=== PATIENT | female | born 1985 | race Caucasian/White ===

== ENCOUNTER 2018-10-03 12:40 | Outpatient (CLI) | payer OTHER | END 2018-10-03 23:59 | disposition home or self-care (01) | LOC: RAD 12:40 | PROVIDERS: ATTEND Family Medicine Sports Medicine | DX: S73.192A Other sprain of left hip, initial encounter (principal); M76.31 Iliotibial band syndrome, right leg; I10 Essential (primary) hypertension; Z72.89 Other problems related to lifestyle; X58.XXXA Exposure to other specified factors, initial encounter; Y93.89 Activity, other specified; Y92.89 Other specified places as the place of occurrence of the external cause; Y99.8 Other external cause status | CPT/HCPCS: 73721; 73722; 77002; J1040 ==

== ENCOUNTER → 2019-01-01 | Outpatient (CLI) | payer OTHER ==
[~2019-01-01] MED LIST: LISI-170 PO
[2019-01-01 11:03] LABS: ALBUMIN 4.7 g/dL (3.4-5.0); ANION GAP 5 mmol/L (5-15); CALCIUM 9.6 mg/dL (8.5-10.1); CHLORIDE 103 mmol/L (98-107)
[2019-01-01 11:06] LABS: ALANINE AMINOTRANSFERASE 26 U/L (12-78); ALKALINE PHOSPHATASE 60 U/L (45-117); BILIRUBIN,TOTAL 0.8 mg/dL (0.2-1.0); CREATININE 0.95 mg/dL (0.55-1.02); TOTAL PROTEIN 8.2 g/dL (6.4-8.2)
== END | disposition home or self-care (01) ==
LOC: STAR 09:38
PROVIDERS: ATTEND Orthopaedic Surgery
DX: Z01.818 Encounter for other preprocedural examination (principal); M24.151 Other articular cartilage disorders, right hip; M25.561 Pain in right knee; I10 Essential (primary) hypertension; M25.551 Pain in right hip; M25.859 Other specified joint disorders, unspecified hip; M75.21 Bicipital tendinitis, right shoulder
CPT/HCPCS: 36415; 80053; 93005

== ENCOUNTER 2019-01-07 05:09 | Day surgery (SDC) | payer OTHER ==
[~2019-01-07] VITALS: Ht 157.5 cm; Wt 53.6 kg
[2019-01-07] MEDS ORDERED: LACTATED RINGERS 1,000 ML IV SCH (05:50)
[2019-01-07 05:55] VITALS: BP 110/75
[2019-01-07] MEDS ORDERED: LIDOCAINE-MPF 1%, 2ML INFIL ONE (06:00)
[2019-01-07] MEDS ORDERED: LIDOCAINE-MPF 1%, 2ML ONE (06:02)
[2019-01-07 06:13] LABS: HCG UR SG 1.025 (1.003-1.030)
[2019-01-07] MEDS ORDERED: EPINEPHRINE TOPICAL SOLN 1 MG/ML, 30ML ONE (06:13)
[2019-01-07] MEDS ORDERED: ROPIvacaine/PF 0.5%, 30 ML ONE (06:13)
[2019-01-07] MEDS ORDERED: MIDAZOLAM 1 MG/ML, 2ML ONE (06:38)
[2019-01-07] MEDS ORDERED: FENTANYL PF 250 MCG/5ML ONE (06:39)
[2019-01-07] MEDS ORDERED: SCOPOLAMINE PATCH, 1.5MG PATCH.TD72 TD ONE ×2 (06:52→07:00)
[2019-01-07] MEDS ORDERED: DEXAMETHASONE 4 MG/ML, 1ML ONE (06:59)
[2019-01-07] MEDS ORDERED: ROCURONIUM 10 MG/ML,10ML ONE (06:59)
[2019-01-07] MEDS ORDERED: PROPOFOL 10 MG/ML, 20ML ONE (06:59)
[2019-01-07] MEDS ORDERED: ONDANSETRON 2MG/ML, 2ML ONE (06:59)
[2019-01-07] MEDS ORDERED: CEFAZOLIN 1,000 MG ONE (06:59)
[2019-01-07] MEDS ORDERED: SUCCINYLCHOLINE 20 MG/ML, 10ML ONE (06:59)
[2019-01-07] MEDS ORDERED: GABAPENTIN 300 MG CAPSULE PO ONE (07:00)
[2019-01-07] MEDS ORDERED: ACETAMINOPHEN 500 MG TABLET PO ONE (07:00)
[2019-01-07] MEDS ORDERED: HYDROmorphone 1 MG/ML, 1ML INJ IV PRN (07:30)
[2019-01-07] MEDS ORDERED: MEPERIDINE/PF 25MG/0.5ML IVPush PRN (07:30)
[2019-01-07] MEDS ORDERED: METOCLOPRAMIDE 5 MG/ML, 2ML IV PRN (07:30)
[2019-01-07] MEDS ORDERED: ALBUTEROL SULFATE 2.5 MG/3 ML NPPB PRN (07:30)
[2019-01-07] MEDS ORDERED: ONDANSETRON 2MG/ML, 2ML IVPush PRN (07:30)
[2019-01-07] MEDS ORDERED: PROMETHAZINE 25 MG/ML, 1ML IV PRN (07:30)
[2019-01-07] MEDS ORDERED: KETOROLAC 30 MG/1 ML IV PRN (07:30)
[2019-01-07] MEDS ORDERED: hydrALAzine 20 MG/ML, 1ML IV PRN (07:30)
[2019-01-07] MEDS ORDERED: LABETALOL 5MG/ML, 20ML IV PRN (07:30)
[2019-01-07] MEDS ORDERED: OXYcodone 5 MG/5 ML ORAL.SOL UDC PO PRN (07:30)
[2019-01-07] MEDS ORDERED: KETOROLAC 30 MG/1 ML ONE (08:34)
[2019-01-07] MEDS ORDERED: FENTANYL PF 100 MCG/2ML ONE ×2 (08:42→09:00)
[2019-01-07] MEDS: FENTANYL PF 100 MCG/2ML IV PRN ×4 (08:44→09:03)
[2019-01-07] MEDS ORDERED: OXYcodone 5 MG/5 ML ORAL.SOL UDC ONE (08:46)
[2019-01-07] MEDS ORDERED: OXYcodone 5 MG/5 ML ORAL.SOL UDC PO STA (09:37)
[2019-01-07] MEDS ORDERED: OXYcodone 5 MG/5 ML ORAL.SOL UDC PO ONE (10:00)
[2019-01-07] MEDS ORDERED: PROMETHAZINE 25 MG/ML, 1ML IM PRN (11:00)
== END 2019-01-07 12:15 | disposition home or self-care (01) ==
LOC: OUT 05:09
PROVIDERS: ATTEND Orthopaedic Surgery
DX: S73.191A Other sprain of right hip, initial encounter (principal); M25.851 Other specified joint disorders, right hip; M65.851 Other synovitis and tenosynovitis, right thigh; M24.151 Other articular cartilage disorders, right hip; Z79.891 Long term (current) use of opiate analgesic; Z87.891 Personal history of nicotine dependence; X58.XXXA Exposure to other specified factors, initial encounter; Y93.89 Activity, other specified; Y92.89 Other specified places as the place of occurrence of the external cause; Y99.8 Other external cause status
CPT/HCPCS: 29914; 29916; 73501; 81025; C1713; J0330; J0690; J1100; J1885; J2250; J2405; J2550; J2704; J2795; J3010; J7120; 76000